=== PATIENT | male | born 1960 | race Hispanic/Latino ===

== ENCOUNTER 2016-10-21 07:44 | Day surgery (SDC) | payer BC ==
[2016-10-21 08:24] LABS: Basophils % (Auto) 1.4 % (0.0-1.8); Eosinophils % (Auto) 4.6 % (0.0-4.3); Hematocrit 39.9 % (35.5-45.6); Hemoglobin 14.1 gm/dl (11.8-15.2); Mean Corpuscular HGB Conc 35 % (32-34); Mean Corpuscular Hemoglobin 33 pg (28-32); Mean Corpuscular Volume 94 fl (84-94); Platelet Count 137 K/mm3 (140-440); Red Blood Count 4.26 M/mm3 (3.65-5.03); Red Cell Distribution Width 14.4 % (13.2-15.2); White Blood Count 4.9 K/mm3 (4.5-11.0)
[2016-10-21] MEDS ORDERED: ECOTRIN PO ONE (08:30)
[2016-10-21 08:35] LABS: INR 0.84 (0.87-1.13)
[2016-10-21 08:52] LABS: Anion Gap 19 mmol/L; Blood Urea Nitrogen 9 mg/dL (9-20); Calcium 8.9 mg/dL (8.4-10.2); Carbon Dioxide 21 mmol/L (22-30); Chloride 104.7 mmol/L (98-107); Glucose 101 mg/dL (75-100); Potassium 4.3 mmol/L (3.6-5.0); Sodium 140 mmol/L (137-145)
[2016-10-21] MEDS ORDERED: NACL 0.9% 500 ML 500 ML IV SCH (09:00)
[2016-10-21] MEDS ORDERED: CALAN ONE (09:31)
[2016-10-21] MEDS ORDERED: HEPARIN/NS 5000 UNIT/500ML(CATH LAB) 1,000 ML IR ONE (09:31)
[2016-10-21] MEDS ORDERED: HEPARIN 10,000 UNITS/10 ML ONE (09:31)
[2016-10-21] MEDS ORDERED: NITROGLYCERIN SYRINGE 3 ML ONE (09:32)
[2016-10-21] MEDS: SUBLIMAZE ONE ×2 (09:42→10:25)
[2016-10-21] MEDS: VERSED ONE ×2 (09:42→10:25)
[2016-10-21] MEDS: XYLOCAINE 2% INFILTRATI ONE ×2 (09:43→10:26)
--- NOTE | 2016-10-21 12:13 | Cardiac Catherization Report ---
CARDIAC CATHETERIZATION REFERRING PHYSICIAN: Neo Vasquez MD INDICATION FOR PROCEDURE: The patient is a very pleasant 56-year-old gentleman who underwent PCI of a severe subtotal occlusion of proximal LAD in 04/2016, had cardiac rehabilitation, developed chest pain in May, had a stress test, which was unremarkable, again developed chest pain, which she describes as very similar to previous episodes 2 days ago. Discussed the options, he decided to proceed with left heart catheterization. Risks, benefits, and potential alternatives explained at length prior to obtaining informed consent. PROCEDURE IN DETAIL: The patient was brought to the microbiology lab technician in a postabsorptive state, prepped and draped in sterile fashion. Brandon's test in right hand was normal. A 2 mL of 2% lidocaine used to anesthetize the right wrist. A standard 6-Chinese hydrophilic sheath used to cannulate the right radial artery via modified Seldinger technique. All exchanges performed to exchange a J-tip guidewire. JL3.5 catheter used to engage the left main. No dampening or ventricularization. Cineangiography performed in all projections. JR4 catheter used to cross the aortic valve under fluoroscopic guidance. Left ventriculography performed in 30 ELLIS and 30 THAI projections via hand injections, catheter flushed. Manual pullback performed with continuous pressure monitoring. Catheter used to engage the right coronary. No dampening or ventricularization. Cineangiography performed in all projections. DATA: Aortic pressure is 150/80, LV pressure is 150, LVEDP of 12 mmHg. Left ventriculography revealed normal systolic performance with estimated ejection fraction of 55-60%. No evidence of aortic stenosis. CORONARY ANATOMY: This is a strongly left dominant system, dual ostia of the circumflex and LAD. Left circumflex is a large vessel, courses AV groove, give off an OM trunk and left PDA. No significant disease. LAD is a moderate sized vessel, courses anterior intergroove, wraps around the apex. The proximal stent is widely patent. No significant disease in the LAD. Right coronary is a very small nondominant. No significant disease. Left ventricular function is normal, 55-60%. No evidence of aortic stenosis. CONCLUSIONS: 1. No angiographic evidence of significant epicardial coronary artery disease, strongly left dominant system, patent proximal LAD stent. 2. Normal left ventricular systolic performance, estimated ejection fraction of 55-60%. No evidence of aortic stenosis. 3. Normal LVEDP. 4. Continue aggressive medical management. Risk factor modification. Results of procedure explained in length to the patient and family. All questions and concerns were addressed. JOB# [id number] VENKATA/NTS
[2016-10-21 12:36] VITALS: BP 136/73
--- NOTE | 2016-10-21 14:21 | Short Stay Summary ---
Short Stay Documentation Date of service: 10/21/16 - History H&P: obtained from office - Allergies and Medications Current Medications: Allergies Sulfa (Sulfonamide Antibiotics) Allergy (Verified 04/15/16 08:49) Rash Home Medications Medication Instructions Recorded Confirmed Last Taken Type Aspirin [Aspirin TAB] 325 mg PO QDAY #30 tablet 04/16/16 10/21/16 10/21/16 Rx Prasugrel [Effient] 10 mg PO QDAY #30 tablet 04/16/16 10/21/16 10/20/16 Rx Digestive Enzymes Combo No.7 1 each PO DAILY 10/21/16 10/21/16 10/20/16 History [Superior Digestive Enzyme] Active Medications Sodium Chloride (Nacl 0.9% 500 Ml) 500 mls @ 50 mls/hr IV DIRECT MILAGROS Stop: 10/21/16 18:59 Last Admin: 10/21/16 08:24 Dose: 50 mls/hr - Brief post op/procedure progress note Date of procedure: 10/21/16 Pre-op diagnosis: chest pain Post-op diagnosis: same Procedure: [facility] - see cath report Anesthesia: local Estimated blood loss: none Condition: stable - Disposition Condition at discharge: Stable Disposition: DC-01 TO HOME OR SELFCARE - Discharge Diagnoses (1) S/P PTCA (percutaneous transluminal coronary angioplasty) Status: Chronic (2) CAD (coronary artery disease) Status: Chronic Qualifiers: Coronary Disease-Associated Artery/Lesion type: C [place] vs. transplanted heart: N Associated angina: A (3) Chest pain Status: Resolved Qualifiers: Chest pain type: C Ischemic chest pain type: I Short Stay Discharge Plan Activity: advance as tolerated Diet: low fat, low cholesterol, low salt Wound: per your surgeon's advice Additional Instructions: Make follow up appintment wit in 7 days Follow up with: PRIMARY MD BENNIE [Primary Care Provider] - 7 Days YOSSI ROJAS MD [Staff Physician] - 7 Days Forms: CardCath PCI D/C Instructions, Post Sedation D/C Instructions
== END 2016-10-21 12:50 | disposition home or self-care (01) ==
LOC: CATHLABREC 07:44
PROVIDERS: ATTEND Internal Medicine
DX: R07.9 Chest pain, unspecified (principal); I25.10 Atherosclerotic heart disease of native coronary artery without angina pectoris; Z98.61 Coronary angioplasty status; Z88.2 Allergy status to sulfonamides; Z79.82 Long term (current) use of aspirin; Z79.899 Other long term (current) drug therapy
CPT/HCPCS: 36415; 80048; 85025; 85610; 85730; 93005; 93010; 93458; C1894; J1644; J2250; J3010; J7040; Q9967